=== PATIENT | female | born 1970 | race Caucasian/White ===

== ENCOUNTER 2025-09-28 10:00 | Day surgery (SDC) | payer OTHER ==
[~2025-09-28 10:00] MED LIST: CELEBREX100 MG PO; DIPHENHYDRAMINE HCL 50 MG/ML VIAL 1ML IV ONE; KEFLEX500 MG PO; MIDAZOLAM HCL 2 MG/2 ML VIAL IV ONE; ONDANSETRON HCL 2 MG/ML VIAL IV ONE; PERCOCET 5/3251 TAB PO; SYNTHROID100 MCG PO; SYNTHROID88 MCG PO; fentaNYL CITRATE 50 MCG/ML AMPUL IV PUSH ONE
== END 2025-09-28 10:25 | disposition home or self-care (01) ==
LOC: AMB-ENDOS 10:00
PROVIDERS: ATTEND Colon & Rectal Surgery
DX: D12.3 Benign neoplasm of transverse colon (principal); K63.5 Polyp of colon